=== PATIENT | female | born 1950 | race Caucasian/White ===

== ENCOUNTER 2020-07-31 10:11 | Outpatient (CLI) | payer MEDICARE, SELFPAY ==
--- NOTE | ~2020-07-31 | MM_ITS ---
EXAMINATION: MM screening fercho BI w moon HISTORY: Screening mammogram TECHNIQUE: Craniocaudal and mediolateral oblique 3-D tomosynthesis images were obtained and synthetic 2-D images were generated. CAD analysis was submitted and interpreted. COMPARISON: No prior mammogram is available for comparison at this institution. BREAST PARENCHYMAL COMPOSITION: There are scattered areas of fibroglandular density. FINDINGS: Benign calcifications including arterial calcifications. There are 2 heavily calcified dege nerated fibroadenomas on the right. There is a circumscribed 8 mm opacity in the mid inner left breas t. There is no evidence of suspicious mass, calcification, or architectural distortion to suggest malign turner in either breast. IMPRESSION: 1. No mammographic evidence of malignancy. 2. Recommend routine screening mammography in one year. BI-RADS Category 2: Benign finding(s). Reviewed, dictated and finalized at location A.
--- NOTE | ~2020-07-31 | DEXA_ITS ---
Bone Density Report Name: Nivia Truong Age: 69 Sex: Female Ethnicity: White Date of : 1950 Indication: postmenopausal; Referring Provider: Aurea Quiroz Study: Bone densitometry was performed. Exam Date: July 31, 2020 Accession number: [id number] Bone Density: Region BMD T-score Z-score Classification AP Spine (L1-L4) 0.973 -0.7 1.5 Normal Femoral Neck (Left) 0.616 -2.1 -0.3 Osteopenia Total Hip (Left) 0.795 -1.2 0.3 Osteopenia Total Hip Bilateral Avg 0.787 -1.3 0.3 Osteopenia Femoral Neck (Right) 0.628 -2.0 -0.2 Osteopenia Total Hip (Right) 0.778 -1.3 0.2 Osteopenia World Health Organization criteria for BMD impression classify patients as: Normal (T-score at or above -1.0), Osteopenia (T-score between -1.0 and -2.5), or Osteoporosis (T-score at or below -2.5). 10-year Fracture Risk(1): Major Osteoporotic Fracture 12% Hip Fracture 2.4% Reported Risk Factors: [place] (), Neck BMD=0.616, BMI=28.7 (1) FRAX(R) Version 3.08. Fracture probability calculated for an untreated patient. Fracture probability may be lower if the patient has received treatment. Clinical Information Provided by Patient: Patient maximum height was 66.5 Menopause Age: 61 Drinks caffeinated beverages Onset of menses at age 15 Number of children 5 Impression: The patient has low bone mass, based on the Left Femoral Neck T-score. The patient has an estimated ten-year risk of hip fracture of 2.4% and an estimated ten-year risk of major fracture of 12%, based on the WHO FRAX algorithm. Discussion: BONE DENSITY IS LOW AT ONE OR MORE SKELETAL SITES. This patient's lowest T-score is low at one or more skeletal sites. It meets the World Health Organization's (WHO) criteria for ?low bone mass? (T-score between -1.0 and -2.5). The patient's 10-year risk of fracture as calculated by FRAX is less than the threshold where pharmacological therapy is recommended by the National Osteoporosis Foundation (NOF). However, all treatment decisions require clinical judgment and consideration of individual patient factors, including patient preferences, comorbidities, previous drug use, risk factors not captured in the FRAX model (e.g., frailty, falls, vitamin D deficiency, increased bone turnover, interval significant decline in bone density) and possible under or overestimation of fracture risk by FRAX. The patient should follow a healthful lifestyle (good nutrition with adequate calcium and vitamin D, and appropriate weight-bearing exercise). Follow-Up: Consider repeating this study in 2 to 3 years to reassess this patient's status, or sooner if there is some new clinical indication. Reported by: JANES on 07/31/2020 10:41:00 AM. Reviewed, dictated and finalized at location A. MI
== END 2020-07-31 10:12 | disposition home or self-care (01) ==
LOC: ANHIMG 10:17
PROVIDERS: PCP Family Medicine; Visit Provider Nurse Practitioner Family
DX: Z12.31 Encounter for screening mammogram for malignant neoplasm of breast (principal); Z78.0 Asymptomatic menopausal state; M85.852 Other specified disorders of bone density and structure, left thigh; M85.851 Other specified disorders of bone density and structure, right thigh
CPT/HCPCS: 77063; 77067; 77080

== ENCOUNTER 2021-02-02 14:29 | Emergency (ER) | payer MEDICARE, SELFPAY ==
[2021-02-02 15:27] VITALS: BP 130/75; PULSE 77; RESP 20; TEMP 36.4; O2SAT 98
--- NOTE | 2021-02-02 15:36 | ED.URI ---
HPI - URI/Sore Throat General Chief Complaint: Upper Respiratory Infection Stated Complaint: Cough,Body Aches,Headache,Loss of smell and taste Time Seen by Provider: 02/02/21 15:36 Source: patient, family, RN notes reviewed and old records reviewed Mode of arrival: ambulatory Limitations: no limitations History of Present Illness HPI Narrative: 70-year-old female presents to the [facility] with complaints of cough, body aches, headache and loss of taste and smell. Patient states that she had a positive exposure on Tuesday, January 26. Started with a cough and congestion on Tuesday. States she lost taste of smell yesterday. Denies fever. Describes as severe body aches and pains that started yesterday. Reports that she has felt feverish but has not taken her temperature. MD elicited complaint: cough Related Data Home Medications Medication Instructions Recorded Confirmed cholecalciferol (vitamin D3) 50 50 mcg PO DAILY 08/07/20 02/02/21 mcg (2,000 unit) capsule vitamin B complex 1 tablet PO DAILY 09/18/20 02/02/21 Allergies Allergy/AdvReac Type Severity Reaction Status Date / Time aspirin Allergy Intermediate HEADACHE,RINGING Verified 02/02/21 15:18 IN EARS Penicillins Allergy Intermediate LARGE HIVES Verified 02/02/21 15:18 Review of Systems Review of Systems: All systems reviewed & are unremarkable except as noted in HPI and below Constitutional: Constitutional: Reports as per HPI and Reports chills Eyes: Eyes: Reports no additional eye complaints ENT: Reports system reviewed and no additional complaints, except as documented Cardiovascular: Cardiovascular: Reports no additional cardiovascular complaints, Denies chest pain and Denies radiating jaw, neck or arm pain Respiratory: Respiratory: Reports as per HPI, Reports cough and Denies dyspnea Gastrointestinal: Gastrointestinal: Reports no additional gastrointestinal complaints, Denies abdominal pain, Denies nausea and Denies vomiting Musculoskeletal: Musculoskeletal: Reports as per HPI and Reports myalgias Integumentary/Breasts: Skin/Breast: Reports system reviewed and no additional complaints, except as docu Neurologic: Reports system reviewed and no additional complaints, except as documented Psychiatric: Psychiatric: Reports no additional psychiatric complaints Allergic/Immunologic: Allergic/Immunologic: Reports no additional allergic/immunologic complaints PMFSH Past Medical History Medical History Hyperlipidemia May-Thurner syndrome Stress incontinence, female Surgical History Surgical History Hx of partial thyroidectomy (~1965) Family History Family History Mother Family history of thyroid disease Family history of obesity Family history of osteoarthritis Family history of malignant neoplasm Family history of diabetes mellitus in first degree relative Grandparent Family history of bipolar disorder Family history of attention deficit hyperactivity disorder (ADHD) Other Family history of pancreatic cancer Social History Social History Social History: , lives in own home in [place] with her . Has 5 children who live nearby. 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 Smoking status: Never smoker Second hand tobacco smoke exposure: No Alcohol intake: never Comments At the time of my signature, I reviewed and agree with the nursing past medical, surgical, social, and family history. There is no relevant family history pertinent to the patient complaint. Exam Const: General: no acute distress, alert and ill appearing acutely (mild) Nutritional Appearance: well nourished Orientation/consciousness: patient oriented x3 Limitations: no limitations HENMT: Head: normal
[2021-02-04 03:58] LABS: SARS-CoV-2 RNA PCR Positive
== END 2021-02-02 16:20 | disposition home or self-care (01) ==
PROVIDERS: Emergency Provider Nurse Practitioner
DX: U07.1 COVID-19 (principal); J12.82 Pneumonia due to coronavirus disease 2019; E78.5 Hyperlipidemia, unspecified
CPT/HCPCS: 87804; 99213; C9803; G0463; U0003; U0005

== ENCOUNTER → 2021-03-26 08:48 | Outpatient (CLI) | payer OTHER, SELFPAY ==
--- NOTE | ~2021-03-26 | XR_ITS ---
XR chest 2V DATE: 03/26/2021 09:17 INDICATION: Cough TECHNIQUE: 2 views COMPARISON: None FINDINGS: Normal heart size. No hilar or mediastinal enlargement. No pulmonary infiltrate or consolid ation, pleural effusion or pulmonary vascular congestion or pneumothorax is detected. Diffuse osteope ike. IMPRESSION: No active cardiopulmonary disease Reviewed, dictated and finalized at location B. O CONTROL CRANE OPERATOR
--- NOTE | ~2021-03-26 | XR_ITS ---
EXAMINATION: XR wrist LT w scaphoid DATE: 03/26/2021 09:17 INDICATION: Snuffbox tenderness post injury 2-3 weeks prior. TECHNIQUE: Posteroanterior, ulnar deviation, oblique, and lateral views of the left wrist were obtain ed. COMPARISON: none FINDINGS: Bone alignment is normal. Subtle dense line extending across the scaphoid waist which could represent a double density sign related to a nondisplaced fracture. No other lesions suspicious for fracture i dentified. Mild osteoarthritis at the distal radioulnar, triscaphe and first carpal metacarpal joints . IMPRESSION: 1. Possible nondisplaced fracture at the scaphoid waist although suspicion is relatively low. Could c onsider further evaluation with either MRI or CT. Reviewed, dictated and finalized at location A. TOLOGIST IMPRESSION: 1. Possible nondisplaced fracture at the scaphoid waist although suspicion is r elatively low. Could consider further evaluation with either MRI or CT.
== END ==
PROVIDERS: PCP Family Medicine; Visit Provider Family Medicine
DX: S63.502A Unspecified sprain of left wrist, initial encounter (principal); R05.9 Cough, unspecified; X58.XXXA Exposure to other specified factors, initial encounter
CPT/HCPCS: 71046; 73110

== ENCOUNTER → 2021-04-10 09:13 | Outpatient (CLI) | payer OTHER, SELFPAY ==
--- NOTE | ~2021-04-10 | MR_ITS ---
EXAMINATION: MR wrist LT wo con DATE: 04/10/2021 10:14 INDICATION: Left wrist pain. TECHNIQUE: Magnetic resonance imaging (MRI) of the wrist was performed without intravenous contrast. Sequences performed include coronal T1-weighted FSE, coronal PD-weighted FS FSE, axial PD-weighted FS FSE, axial PD-weighted FSE, sagittal PD-weighted FSE, and sagittal PD-weighted FS FSE. COMPARISON: Left wrist radiographs 03/26/2021 FINDINGS: Intrinsic ligaments: There are tears of the proximal (membranous) components of the scapholunate ligament and lunotriquetr al ligament. Triangular fibrocartilage complex (TFCC): Triangular fibrocartilage is normal. Extensor wrist: There is tendinopathy and partial tears involving the extensor pollicis brevis, abductor pollicis lakesha fatuma, and extensor carpi ulnaris. Flexor wrist: The flexor tendons are normal. Median nerve is normal. Guyon's canal: The ulnar nerve is normal. Bones/other: There is a nondisplaced fracture of distal radius with involvement of the distal articular surface at the lunate fossa. The ulnar styloid is intact. There is no scaphoid fracture. There is mild osteoart hritis of triscaphe joint and first carpometacarpal joint. IMPRESSION: 1. Nondisplaced fracture of distal radius. 2. Tendinopathy and partial tears involving the extensor pollicis brevis, abductor pollicis longus, a nd extensor carpi ulnaris. 3. 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 Reviewed, dictated and finalized at location A. AZZO HELPER IMPRESSION: 1. Nondisplaced fracture of distal radius. 2. Tendinopathy and partial tears involving the extensor pollicis brevis, abduc tor pollicis longus, and extensor carpi ulnaris. 3. 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
== END ==
PROVIDERS: PCP Family Medicine; Visit Provider Orthopaedic Surgery
DX: M19.032 Primary osteoarthritis, left wrist (principal)
CPT/HCPCS: 73221

== ENCOUNTER 2021-12-02 08:15 | Outpatient (CLI) | payer OTHER, SELFPAY ==
[2021-12-03 11:20] LABS: Kit Draw Collected
== END 2021-12-02 08:16 | disposition home or self-care (01) ==
LOC: ANHGOSHLAB 08:19
PROVIDERS: PCP Family Medicine; Visit Provider Family Medicine
DX: E78.5 Hyperlipidemia, unspecified (principal); Z53.8 Procedure and treatment not carried out for other reasons
CPT/HCPCS: 99199; 36415

== ENCOUNTER 2022-05-24 12:38 | Outpatient (CLI) | payer OTHER, SELFPAY ==
--- NOTE | ~2022-05-24 | US_ITS ---
EXAMINATION:US venous doppler LE LT INDICATION:Left leg pain TECHNIQUE: Multiple grayscale, color flow and Doppler images of the left lower extremity deep venous systems were obtained and reviewed. COMPARISON:No prior studies for comparison. FINDINGS: The common femoral, superficial femoral and popliteal veins demonstrate normal respiratory variation, augmentation and compressibility. Color flow is also seen within the posterior tibial, pe roneal, greater saphenous and profunda veins. IMPRESSION: 1: No lower extremity deep venous thrombosis. Reviewed, dictated and finalized at location A.
== END 2022-05-24 12:39 | disposition home or self-care (01) ==
PROVIDERS: PCP Family Medicine; Visit Provider Physician Assistant
DX: M79.89 Other specified soft tissue disorders (principal)
CPT/HCPCS: 93971

== ENCOUNTER 2022-06-25 10:01 | Outpatient (CLI) | payer OTHER, SELFPAY ==
--- NOTE | ~2022-06-25 | MM_ITS ---
EXAMINATION: MM screening fercho BI w moon HISTORY: Screening mammogram TECHNIQUE: Craniocaudal and mediolateral oblique 3-D tomosynthesis images were obtained and synthetic 2-D images were generated. CAD analysis was submitted and interpreted. COMPARISON: 08/01/2019 BREAST PARENCHYMAL COMPOSITION: There are scattered areas of fibroglandular density. FINDINGS: No suspicious mass, calcification, or architectural distortion are identified in either edy ast to suggest malignancy. There has been no suspicious interval change. IMPRESSION: 1. No mammographic evidence of malignancy. 2. Recommend routine screening mammography in one year. BI-RADS Category 1: Negative Reviewed, dictated and finalized at location A.
== END 2022-06-25 10:02 | disposition home or self-care (01) ==
LOC: ANHIMG 10:03
PROVIDERS: PCP Family Medicine; Visit Provider Physician Assistant
DX: Z12.31 Encounter for screening mammogram for malignant neoplasm of breast (principal)
CPT/HCPCS: 77063; 77067

== ENCOUNTER 2022-12-27 12:44 | Outpatient (CLI) | payer OTHER, SELFPAY ==
[2022-12-27 18:22] LABS: Alanine Aminotransferase 20 U/L (6-35); Albumin Level 3.9 g/dL (3.5-5.1); Alkaline Phosphatase 64 U/L (38-126); Anion Gap 6 mmol/L (8-16); Aspartate Amino Transferase 27 U/L (14-36); Bilirubin,Total 0.5 mg/dL (0.2-1.3); Blood Urea Nitrogen 13 mg/dL (7-17); Calcium 8.8 mg/dL (8.4-10.2); Carbon Dioxide 30 mmol/L (22-30); Chloride 102 mmol/L (98-107); Cholesterol 299 mg/dL (0-200); Estimated Glomerular Filt Rate > 60; Glucose 89 mg/dL (65-110); HDL Direct 64 mg/dL; Potassium 4.6 mmol/L (3.4-5.0); Sodium 138 mmol/L (137-145); Triglycerides 114 mg/dL (<150)
[2022-12-27 18:34] LABS: LDL Cholesterol Direct 169 mg/dL
== END 2022-12-27 12:45 | disposition home or self-care (01) ==
PROVIDERS: PCP Family Medicine; Visit Provider Family Medicine
DX: E78.5 Hyperlipidemia, unspecified (principal); I87.1 Compression of vein
CPT/HCPCS: 36415; 80053; 80061

== ENCOUNTER 2023-06-04 08:24 | Outpatient (CLI) | payer OTHER, SELFPAY ==
[2023-06-04 11:44] LABS: Toxigenic C. Diff NEGATIVE (NEGATIVE)
== END 2023-06-04 08:25 | disposition home or self-care (01) ==
LOC: ANHLAB 08:26
PROVIDERS: PCP Family Medicine; Visit Provider Nurse Practitioner Family
DX: R19.7 Diarrhea, unspecified (principal)
CPT/HCPCS: 87045; 87427; 87449; 87493

== ENCOUNTER 2023-06-15 08:48 | Day surgery (SDC) | payer OTHER, SELFPAY ==
[2023-06-07 08:56] VITALS: BMI 28.7
--- NOTE | 2023-06-15 10:04 | SUR.PREOP ---
WHILE TAKING PT VITAL SIGNS. PULSE OX SHOWS IRREGULAR HEART BEAT. RADIAL PULSE TAKEN, OCCASIONAL IRREGULAR BEAT. PT PLACED ON TELEMETRY. NSR WITH OCCASIONAL PVC. DR ROSENTHAL NOTIFIED.
[2023-06-15 10:08] VITALS: BMI 28.4
[2023-06-15 10:09] VITALS: BP 116/65; PULSE 74; RESP 18; TEMP 36.5; O2SAT 99
--- NOTE | 2023-06-15 10:15 | WPDANESEPPF ---
Anes - Initial Pre Proc Eval Procedure: Operation Date: 06/15/23 11:00 Proposed Procedures p Esophagogastroduodenoscopy - Meek Michele MD Date/Time: 06/15/23 10:15 Surgeon: Meek Michele MD Pre Op Diagnosis: GERD without esophagitis Patient Data Age: 72 Gender: F Height: 1.68 m Weight: 80 kg Last Vital Signs Temp 36.5 C 06/15/23 10:09 Pulse 74 06/15/23 10:09 Resp 18 06/15/23 10:09 BP 116/65 06/15/23 10:09 Pulse Ox 99 06/15/23 10:09 O2 Del Method Room Air 06/15/23 10:09 Allergies Allergy/AdvReac Type Severity Reaction Status Date / Time Iodinated Contrast Media Allergy Severe childhood: Verified 06/15/23 09:44 difficulty breathing aspirin Allergy Intermediate headache, Verified 06/15/23 09:44 nausea, can't breathe Penicillins Allergy Intermediate LARGE HIVES Verified 06/15/23 09:44 venom-honey bee Allergy Unknown Hives Verified 06/15/23 09:44 venom-wasp Allergy Unknown Hives Verified 06/15/23 09:44 phenazopyridine [From Azo] Allergy LOCAL RASH Verified 06/15/23 09:44 GAULDED Home Medications Medication Instructions Recorded Confirmed Type cholecalciferol (vitamin D3) 50 50 mcg PO DAILY 08/07/20 06/15/23 History mcg (2,000 unit) capsule vitamin B complex (B 1 tablet PO DAILY 09/18/20 06/15/23 History Complex-Vitamin B12 tablet) melatonin 3 mg capsule 3 mg PO QHS 07/09/21 06/15/23 History epinephrine 0.3 mg/0.3 mL 0.3 mg (0.3 mL) IM ONCE #2 ea 10/05/21 06/15/23 Rx injection, auto-injector (EpiPen 2-Felipe) potassium 99 mg tablet 99 mg PO DAILY 12/01/21 06/15/23 History vitamins A,C,V-dtva-tfbuac 4,296 1 cap PO BID 12/01/21 06/15/23 History mcg-226 mg-90 mg capsule (Healthy Eyes SuperVision) thumb spica splint #1 ea 06/08/22 12/28/22 Rx lactobacillus combination no.9 4 4,000 mmu cells PO DAILY 07/23/22 06/15/23 History billion cell capsule (Adult 50 Plus Probiotic) ezetimibe 10 mg tablet 10 mg PO DAILY #90 tabs 05/13/23 06/15/23 Rx ciprofloxacin HCl 500 mg tablet 500 mg PO Q12H #20 tabs 06/03/23 06/15/23 Rx Patient hx anesthesia problems: none Family hx anesthesia problems: none Results Review: All pre-operative results and documents have been reviewed as part of the pre-operative evaluation. [facility] Past Medical History Medical History Alternating constipation and diarrhea Aspirin-induced anaphylactoid reaction 2x tolerates aleve Asthma Bee sting-induced anaphylaxis Diminished pulses in lower extremity Hyperlipidemia May-Thurner syndrome Nondisplaced fracture of distal end of left radius Stress incontinence, female Varicose veins of left lower extremity with other complications Surgical History Surgical History History of appendectomy History of tonsillectomy and adenoidectomy History of tubal ligation Hx of partial thyroidectomy (~1965) S/P partial thyroidectomy Family History Family History Mother Family history of thyroid disease Family history of obesity Family history of osteoarthritis Family history of malignant neoplasm Family history of diabetes mellitus in first degree relative Heart disease Grandparent Family history of bipolar disorder Family history of attention deficit hyperactivity disorder (ADHD) Father Asthma Other Family history of pancreatic cancer Social History Social History Social History: , lives in own home in [place] with her . Has 5 children who live nearby. 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 Smoking status: Never smoker Second hand tobacco smoke exposure: No Alcohol intake: never Substance use: never Substance use type: does not use Lack of Transportation: No [place]
[2023-06-15] MEDS: LACTATED RINGERS 1,000 ML 150 ML IV CONT (10:26)
--- NOTE | 2023-06-15 10:57 | PM.HPGS ---
History of Present Illness History of Present Illness Consent: Risks, benefits, and alternatives have been discussed and questions answered. Patient agrees to proceed with procedure. Chief complaint: GERD without esophagitis Narrative: Nivia Truong is a 72 year old female referred for EGD. Patient has a history of chronic GE reflux disease. For many years has had heartburn regurgitation. Previously she took PPI most recently treated with Rolaids and diet modification. She is referred today for follow-up EGD for surveillance she has never previously had an EGD to evaluate this. Patient currently denies any bleeding. Her weight is stable. She denies any weight loss. Family history noncontributory. Review of Systems Review of Systems: All systems reviewed & are unremarkable except as noted in HPI and below PMFSH Past Medical History Medical History Alternating constipation and diarrhea Aspirin-induced anaphylactoid reaction 2x tolerates aleve Asthma Bee sting-induced anaphylaxis Diminished pulses in lower extremity Hyperlipidemia May-Thurner syndrome Nondisplaced fracture of distal end of left radius Stress incontinence, female Varicose veins of left lower extremity with other complications Surgical History Surgical History History of appendectomy History of tonsillectomy and adenoidectomy History of tubal ligation Hx of partial thyroidectomy (~1965) S/P partial thyroidectomy Family History Family History Mother Family history of thyroid disease Family history of obesity Family history of osteoarthritis Family history of malignant neoplasm Family history of diabetes mellitus in first degree relative Heart disease Grandparent Family history of bipolar disorder Family history of attention deficit hyperactivity disorder (ADHD) Father Asthma Other Family history of pancreatic cancer Social History Social History Social History: , lives in own home in [place] with her . Has 5 children who live nearby. 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 Smoking status: Never smoker Second hand tobacco smoke exposure: No Alcohol intake: never Substance use: never Substance use type: does not use Lack of Transportation: No Lack of Food: Never True Current Housing: I Have Housing Concerned About Future Housing: No Difficulty Paying Gas/Electric Bills: No Difficulty Paying for Meds: No Currently Unemployed: No Education: High School Diploma/GED Difficulty w/ Childcare or Family Care: No Living arrangements: with family Gender identity (if verbalized by the patient): Female Meds Home Medications and Allergies Home Medications Medication Instructions Recorded Confirmed Type cholecalciferol (vitamin D3) 50 50 mcg PO DAILY 08/07/20 06/15/23 History mcg (2,000 unit) capsule vitamin B complex (B 1 tablet PO DAILY 09/18/20 06/15/23 History Complex-Vitamin B12 tablet) melatonin 3 mg capsule 3 mg PO QHS 07/09/21 06/15/23 History epinephrine 0.3 mg/0.3 mL 0.3 mg (0.3 mL) IM ONCE #2 ea 10/05/21 06/15/23 Rx injection, auto-injector (EpiPen 2-Felipe) potassium 99 mg tablet 99 mg PO DAILY 12/01/21 06/15/23 History vitamins A,C,M-qciq-vadzty 4,296 1 cap PO BID 12/01/21 06/15/23 History mcg-226 mg-90 mg capsule (Healthy Eyes SuperVision) thumb spica splint #1 ea 06/08/22 12/28/22 Rx lactobacillus combination no.9 4 4,000 mmu cells PO DAILY 07/23/22 06/15/23 History billion cell capsule (Adult 50 Plus Probiotic) ezetimibe 10 mg tablet 10 mg PO DAILY #90 tabs 05/13/23 06/15/23 Rx ciprofloxacin HCl 500 mg tablet 500 mg PO Q12H #20 tabs 06/03/23 06/15/23 Rx Allergies Allergy/AdvReac Type S
[2023-06-15 11:15] VITALS: BP 91/55; PULSE 65; RESP 16; O2SAT 99
[2023-06-15 11:25] VITALS: BP 100/53; PULSE 58; RESP 16; O2SAT 99
[2023-06-15 11:35] VITALS: BP 112/71; PULSE 55; RESP 16; O2SAT 100
--- NOTE | 2023-06-15 11:35 | WPDANESPN ---
Anes - Prog Note Post-Op Date/Time: 06/15/23 11:35 Cardiovascular status: normal Respiratory status: normal Airway patency: baseline Mental status: baseline Post-Op hydration status: normal Vital Signs: Last Vital Signs Temp 36.5 C 06/15/23 10:09 Pulse 58 L 06/15/23 11:25 Resp 16 06/15/23 11:25 BP 100/53 L 06/15/23 11:25 Pulse Ox 99 06/15/23 11:25 O2 Del Method Room Air 06/15/23 11:25 Pain Score (VAS): 0/10 I/O: Intake & Output 06/14/23 06/15/23 06/15/23 23:59 07:59 15:59 Intake Total 300 Balance 300 Patient Feedback: Patient satisfied with anesthetic care.
== END 2023-06-15 12:07 | disposition home or self-care (01) ==
PROVIDERS: PCP Family Medicine; Referring Provider Family Medicine; Visit Provider Internal Medicine Gastroenterology
PROC: 0DJ08ZZ Inspection of Upper Intestinal Tract, Via Natural or Artificial Opening Endoscopic (ICD-10-PCS; CPT 43235; principal; 2023-06-15 11:00)
DX: K21.9 Gastro-esophageal reflux disease without esophagitis (principal); K44.9 Diaphragmatic hernia without obstruction or gangrene
CPT/HCPCS: 43235

== ENCOUNTER 2023-09-30 12:51 | Outpatient (CLI) | payer OTHER, SELFPAY ==
--- NOTE | ~2023-09-30 | MM_ITS ---
EXAMINATION: MM diagnostic fercho BI w moon HISTORY: Breast pain TECHNIQUE: Additional 3-D tomosynthesis images of the breasts were performed and synthetic 2-D images were generated. CAD analysis was submitted and interpreted. COMPARISON: Comparison to multiple prior studies sequentially, with oldest reviewed study dated 07/31. BREAST PARENCHYMAL COMPOSITION: Not dense: There are scattered areas of fibroglandular density. FINDINGS: The breasts are stable. No new masses, calcifications or architectural distortion in either breast to suggest malignancy. IMPRESSION: 1. No mammographic evidence for malignancy in either breast. 2. Routine yearly screening mammogram and regular clinical breast examination are recommended. BI-RADS Category 1: Negative Reviewed, dictated and finalized at location B. IMPRESSION: 1. No mammographic evidence for malignancy in either breast. 2. Routine yearly screening mammogram and regular clinical breast examination a re recommended. BI-RADS Category 1: Negative
== END 2023-09-30 12:52 | disposition home or self-care (01) ==
PROVIDERS: PCP Family Medicine; Visit Provider Student in an Organized Health Care Education/Training Program
DX: N64.4 Mastodynia (principal)
CPT/HCPCS: 77062; 77066; G0279

== ENCOUNTER 2024-06-08 11:41 | Outpatient (CLI) | payer OTHER, SELFPAY ==
[2024-06-08 18:10] LABS: Basophils Percent Auto 0.7 % (0.2-1.2); Eosinophils Absolute Auto 0.1 K/mm3 (0-0.3); Hematocrit 45.5 % (37.0-47.0); Hemoglobin 14.2 g/dL (12.0-15.0); Immature Granulocyte Absolute 0.02 K/mm3 (0.00-0.031); Immature Granulocyte Percent A 0.4 % (0-0.5); Lymphocytes Absolute Auto 1.74 K/mm3 (0.9-3.2); Lymphocytes Percent Auto 31.4 % (18.3-44.2); Mean Corpuscular HGB Conc 31.2 g/dl (32-36); Mean Corpuscular Hemoglobin 28.9 pg (26-34); Mean Corpuscular Volume 92.7 fl (80-100); Mean Platelet Volume 12.1 fl (7.4-10.4); Monocytes Absolute Auto 0.5 K/mm3 (0.1-0.6); Monocytes Percent Auto 9.6 % (2.6-8.5); Neutrophils Absolute Auto 3.1 K/mm3 (1.3-6.7); Neutrophils Percent Auto 55.9 % (45.5-73.1); Platelet Count Result 222 k/mm3 (150-375); Red Blood Count 4.91 M/mm3 (4.2-5.4); Red Cell Distribution Width 13.4 % (11.5-14.5); White Blood Count 5.5 K/mm3 (4.5-10.0)
[2024-06-08 18:31] LABS: Vitamin D 25 Hydroxy 35.4 ng/mL
[2024-06-08 18:48] LABS: Alanine Aminotransferase 17 U/L (6-35); Albumin Level 4.1 g/dL (3.5-5.1); Alkaline Phosphatase 63 U/L (38-126); Anion Gap 4 mmol/L (4-12); Aspartate Amino Transferase 27 U/L (14-36); Bilirubin,Total 0.6 mg/dL (0.2-1.3); Blood Urea Nitrogen 15 mg/dL (7-17); Calcium 8.9 mg/dL (8.4-10.2); Carbon Dioxide 32 mmol/L (22-30); Chloride 101 mmol/L (98-107); Cholesterol 264 mg/dL (0-200); Estimated Glomerular Filt Rate 56; Glucose 79 mg/dL (65-110); HDL Direct 61 mg/dL; Potassium 4.6 mmol/L (3.4-5.0); Sodium 137 mmol/L (137-145); Triglycerides 124 mg/dL (<150)
[2024-06-08 18:56] LABS: LDL Cholesterol Direct 146 mg/dL
--- OUTSIDE RECORDS SUMMARY | 2024-06-09 12:55 | XMS_ITS | Encounter Summary ---
Author Organization [facility] Address 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
--- OUTSIDE RECORDS SUMMARY | 2024-06-09 12:55 | XMS_ITS | Clinical Summary ---
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
--- OUTSIDE RECORDS SUMMARY | 2024-06-09 12:55 | XMS_ITS | Clinical Summary ---
Author Organization [facility] (formerly [facility])[3] at [facility] Address [address] [place] [address] Care Team Providers Care Military Personnel Specialist Name Role Phone Brianna Hall MD Primary Care Provider + Alanis Jack COCOA BUTTER FILTER OPERATOR Unavailable [phone] Allergies Active Allergy Reactions Criticality Noted Date Comments Adhesive Other (See comments) Low 01/16/2018 Aspirin Nausea And Vomiting,Nausea only,Rash High 01/16/2018 And headache And headache Blue Dye Urticaria,Hives Medium 01/16/2018 Green Dye Hives,Urticaria Medium 01/16/2018 Iodinated Contrast Media Hives Medium 08/26/2021 Penicillins Hives,Rash,Urticaria High 01/16/2018 And breathing problems And breathing problems Medications atorvastatin (LIPITOR) 40 mg tablet Take 1 tablet (40 mg total) by mouth daily 06/09/2021 Active ezetimibe (ZETIA) 10 mg tablet Take 1 tablet (10 mg total) by mouth daily Active sertraline (ZOLOFT) 25 mg tablet Take 1 tablet (25 mg total) by mouth daily 30 tablet 11 12/19/2023 5 Active Active Problems Problem Noted Date Diagnosed Date Anxiety disorder 12/19/2023 Assessment & Plan (12/19/2023 2:04 PM ELECTRICAL APPLIANCE MECHANIC): Dx: Anxiety and possible sleep disorder. Possible RLS. Check ferritin, iron panel Start sertraline 25mg, take in the AM. Referral to Sleep Neurology to evaluate and treat for sleep apnea, RLS Leg cramps 12/19/2023 Leg muscle spasm 12/19/2023 Lymphedema 09/23/2021 Assessment & Plan (09/23/2021 9:24 AM CDT): Left lower extremity edema despite compression therapy, family history of lymphedema. I have written a referral for lymphedema pump. Can follow-up as needed. Compression of vein 08/27/2021 Assessment & Plan (08/27/2021 9:20 AM CDT): Per patient she was diagnosed with May-Thurner syndrome of the left lower extremity. Left lower extremity reflux pulpwood buyer study ordered. I will obtain her imaging from [facility] she will follow-up in 1-2 weeks. 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 Surgical History Surgery Date Site/Laterality Comments APPENDECTOMY TONSILLECTOMY TUBAL LIGATION THYROIDECTOMY Medical History Medical History Date Comments Asthma HLD (hyperlipidemia) May-Thurner syndrome Radius fracture left GERD (gastroesophageal reflux disease) Hiatal hernia Family History Medical History Relation Name Comments Asthma Father Cancer Mother Heart disease Mother Osteoarthritis Mother Thyroid disease Mother Relation Name Status Comments Father Mother Social History Tobacco Use Types Packs/Day Years Used Date Smoking Tobacco: Never Tobacco Cessation:Counseling Given: Not Answered Comments Unknown Sex and Gender Information Value Date Recorded Sex Assigned at Not on file Legal Sex Female 12:44 PM CDT Gender Identity Not on file Sexual Orientation Not on file Obstetrics History Last Filed Vital Signs Vital Sign Reading Time Taken Comments Blood Pressure 138/80 12/19/2023 12:53 PM ELECTRICAL APPLIANCE MECHANIC Pulse 102 12/19/2023 12:53 PM ELECTRICAL APPLIANCE MECHANIC Temperature - - Respiratory Rate - - Oxygen Saturation - - Inhaled Oxygen Concentration - - Weight 79.4 kg (175 lb) 12/19/2023 12:53 PM ELECTRICAL APPLIANCE MECHANIC Height 165.1 cm (5' 5 ) 12/19/2023 12:53 PM ELECTRICAL APPLIANCE MECHANIC Body Mass Index 29.12 12/19/2023 12:53 PM ELECTRICAL APPLIANCE MECHANIC Plan of Treatment Health Maintenance Due Date Last Done Comments Breast Cancer Screening-Mammogram 1950 Colon Cancer Screening-Colonoscopy 1949 Depression Screening 1950 Fall Risk Assessment 1950 Hepatitis C Screening 1950 Osteoporosis Screening-Bone Density Scan 1949 DTaP/Tdap/Td Vaccine (1 - Tdap) 1960 Hepatitis B Screening 12/13/1967 Pneumococcal vaccine 65+ (1 of 1 - PCV) 12/13/1999 Zoster Vaccine (1 of 2) 12/13/1999 Well Visit 65+ 2014 Influenza Vaccine (Season Ended) 2024 Insurance [facility] [address] [facility] [facility] Care Teams Military Personnel Specialist Relationship Specialty Start Date End Date Brianna Hall MD [facility] [place] [address] PCP - General Family Medicine 11/09/23 Alanis Jack, COCOA BUTTER FILTER OPERATOR [address] [place] [address] Family Medicine 12/15/23
--- OUTSIDE RECORDS SUMMARY | 2024-06-09 12:55 | XMS_ITS | Clinical Summary ---
Author Organization [facility] Address [address] [place] [address] Care Team Providers Care Sas Clinical Programmer Name Role Phone Unavailable Primary Care Provider Unavailabl e Source Comments [facility],non-owned Affiliates and Associated Physician Practices is amultiple site organization consisting of ambulatory clinics and hospital sitesin [place], [place], [place] and [place]. This disclosure is being madepursuant to the Care Everywhere program and may not contain all information available regarding this patient. Last updated 17.[facility] Allergies Active Allergy Reactions Criticality Noted Date Comments Adhesive Sensitivity Other 01/16/2018 Aspirin Nausea and/or Vomiting,Rash High 01/16/2018 And headache Blue Dyes Urticaria Medium 01/16/2018 Green Dye Urticaria Medium 01/16/2018 Penicillins Urticaria,Rash High 01/16/2018 And breathing problems Medications * Be aware that medications may not be up to date on this document. Alwaysverify current medications with the patient. No known medications Active Problems No known active problems Social History Tobacco Use Types Packs/Day Years Used Date Smoking Tobacco: Never Assessed Comments Unknown Sex and Gender Information Value Date Recorded Sex Assigned at Not on file Legal Sex Female 2:07 PM MACHINERY CLEANER Gender Identity Not on file Sexual Orientation Not on file Last Filed Vital Signs Vital Sign Reading Time Taken Comments Blood Pressure 120/70 12/26/2018 2:40 PM MACHINERY CLEANER Pulse 67 12/26/2018 2:40 PM MACHINERY CLEANER Temperature 37.2 C (98.9 F) 12/26/2018 2:40 PM MACHINERY CLEANER Respiratory Rate 16 12/26/2018 2:40 PM MACHINERY CLEANER Oxygen Saturation 98% 12/26/2018 2:40 PM MACHINERY CLEANER Inhaled Oxygen Concentration - - Weight 79.4 kg (175 lb) 12/26/2018 2:40 PM MACHINERY CLEANER Height 167.6 cm (5' 6 ) 12/26/2018 2:40 PM MACHINERY CLEANER Body Mass Index 28.25 12/26/2018 2:40 PM MACHINERY CLEANER Plan of Treatment Health Maintenance Due Date Last Done Comments BONE DENSITY TESTING 1950 COLOGUARD (AGES 45-75) - COL ON CA SCREENING 1949 COLON MONITORING 1949 COLONOSCOPY - COLON CA SCREENING 1949 CT COLONOGRAPHY - COLON CA SCREENING 1950 Colorectal Cancer Screening 1949 FIT - COLON CA SCREENING 1949 FLEX SIG - COLON CA SCREENING 1949 LIPID TESTING 1949 MAMMOGRAM 1949 HEPATITIS C SCREENING 12/08/1967 DTAP/TDAP/TD VACCINES (1 - Tdap) 1968 PNEUMOCOCCAL VACCINE 50+ (1 of 1 - PCV) 12/13/1999 ZOSTER VACCINE (1 of 2) 12/13/1999 SCREENING FOR DIABETES 12/26/2018 COVID-19 VACCINE (1 - 2023-2 5 season) 2023 DEPRESSION SCREENING 02/08/2024 INFLUENZA VACCINE (Season Ended) 2024 Respiratory Syncytial Virus (RSV) Vaccine Pt: or over 60 yrs (1 - 1-dose 75+ series) 2024 HEPATITIS B VACCINE Aged Out No longe r eligible based on patient's age to complete this topic HIB VACCINE Aged Out No longer eligi ble based on patient's age to complete this topic HPV VACCINE Aged Out No longer eligi ble based on patient's age to complete this topic MENINGOCOCCAL (Group B) VACC INE SHARED DECISION-MAKING Aged Out No longer eligibl e based on patient's age to complete this topic MENINGOCOCCAL GROUPS A/C/Y/W VACCINE Aged Out No longer eligible b ased on patient's age to complete this topic Insurance MEDICARE
--- OUTSIDE RECORDS SUMMARY | 2024-06-09 12:55 | XMS_ITS | Referral Summary ---
Author Organization [facility] at [facility] Address [address] [place] [address] Care Team Providers Care Geospatial Technician Name Role Phone Brianna Hall MD Primary Care Provider + Alanis Jakc RESOLUTION ANALYST Unavailable [phone] Allergies Active Allergy Reactions Criticality Noted Date [...] 12/19/2023 Assessment & Plan (12/19/2023 2:04 PM MANAGER MENTAL HEALTH): Dx: Anxiety and possible sleep disorder. Possible [...] left lower extremity. Left lower extremity reflux ornamental plasterer helper study ordered. I will obtain her imaging from [facility] she will follow-up in 1-2 weeks. 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 Social History Tobacco Use Types Packs/Day Years [...] Comments Blood Pressure 138/80 12/19/2023 12:53 PM MANAGER MENTAL HEALTH Pulse 102 12/19/2023 12:53 PM MANAGER MENTAL HEALTH Temperature - - Respiratory Rate - - Oxygen Saturation - - Inhaled Oxygen Concentration - - Weight 79.4 kg (175 lb) 12/19/2023 12:53 PM MANAGER MENTAL HEALTH Height 165.1 cm (5' 5 ) 12/19/2023 12:53 PM MANAGER MENTAL HEALTH Body Mass Index 29.12 12/19/2023 12:53 PM MANAGER MENTAL HEALTH Plan of Treatment Not on file Insurance [facility] [facility] Care Teams Geospatial Technician Relationship Specialty Start Date End Date Brianna Hall MD [address] [place] [address] [address] [place] [address] PCP - General Family Medicine 11/09/23 Alanis Jack, NORMA [address] [place] [address] Family Medicine 12/15/23
--- OUTSIDE RECORDS SUMMARY | 2024-06-09 12:55 | XMS_ITS | Encounter Summary ---
Author Organization [facility] Address [address] [place] [address] Care Team Providers Care Quirk Sander Name Role Phone Unavailable Primary Care Provider Unavailabl e Encounter Details Date Type Department Care Team (Late st Contact Info) Description 01/08/1998 Outpatient Historical [facility] Internal Medicine [address] [address] Ade Goldstein Social History Tobacco Use Types Packs/Day Years Used Date Smoking Tobacco: Never Assessed Sex and Gender Information Value Date Recorded Sex Assigned at Not on file Legal Sex Male 3:03 AM HOSTED SERVICES ANALYST Gender Identity Not on file Sexual Orientation Not on file documented as of this encounter Plan of Treatment Not on file documented as of this encounter Visit Diagnoses Not on filedocumented in this encounter
--- OUTSIDE RECORDS SUMMARY | 2024-06-09 12:55 | XMS_ITS | Clinical Summary ---
Author Organization [facility] Address [address] [place] [address] Care Team Providers Care Car Refinisher Name Role Phone Brianna Hall MD Primary Care Provider [phone] Allergies Active Allergy Reactions Criticality Noted Date Comments Tape Contact Dermatitis 01/16/2018 Aspirin Nausea Only 01/16/2018 And headache Blue Dyes (Parenteral) Hives 01/16/2018 Green Dye Hives 01/16/2018 Iodinated Contrast Media Hives Medium 08/26/2021 Penicillins Hives 01/16/2018 And breathing problems Medications KRILL OIL OR Take 1 tablet by mouth daily. Active ezetimibe (ZETIA) 10 MG tablet Take 1 tablet (10 mg total) by mouth daily. 05/13/2023 Active Active Problems Problem Noted Date Diagnosed Date Varicose veins of bilateral lower extremities with other complications 11/09/2023 Lymphedema 09/23/2021 Overview (11/09/2023): Last Assessment & Plan: Left lower extremity edema despite compression therapy, family history of lymphedema. I have written a referral for lymphedema pump. Can follow-up as needed. Compression of vein 08/27/2021 Overview (11/09/2023): Last Assessment & Plan: Per patient she was diagnosed with May-Thurner syndrome of the left lower extremity. Left lower extremity reflux performance architect study ordered. I will obtain her imaging from [facility] she will follow-up in 1-2 weeks. Leg swelling 08/27/2021 Overview (11/09/2023): Last Assessment & Plan: Continue compression therapy Family History Medical History Relation Comments Diabetes Mother type 2 Heart Disease Mother mi Diabetes Son Epilepsy Son Relation Status Comments Mother Son Social History Tobacco Use Types Packs/Day Years Used Date Smoking Tobacco: Never Smokeless Tobacco: Never Alcohol Use Standard Drinks/Week Comments No 0 (1 standard drink = 0.6 oz pur e alcohol) AUDIT-C Answer Date Recorded Frequency of Alcohol Consumption Never 01/16/2018 Average Number of Drinks Not on file 018 Frequency of Binge Drinking Not on file 01/07 Comments No Sex and Gender Information Value Date Recorded Sex Assigned at Not on file Legal Sex Female 1:08 PM ASSOCIATE JUSTICE Gender Identity Not on file Sexual Orientation Not on file Last Filed Vital Signs Vital Sign Reading Time Taken Comments Blood Pressure 130/78 11/09/2023 9:31 AM CDT Pulse 62 11/09/2023 9:31 AM CDT Temperature 36.4 C (97.5 F) 01/18/2018 12:10 PM ASSOCIATE JUSTICE Respiratory Rate 18 01/18/2018 12:10 PM ASSOCIATE JUSTICE Oxygen Saturation 94% 01/18/2018 12:10 PM ASSOCIATE JUSTICE Inhaled Oxygen Concentration - - Weight 82.1 kg (181 lb) 11/09/2023 9:31 AM CDT Height 168.9 cm (5' 6.5 ) 11/09/2023 9:31 AM CDT Body Mass Index 28.78 11/09/2023 9:31 AM CDT Plan of Treatment Upcoming Encounters Date Type Department Care Team (Late st Contact Info) Description 06/20/2024 11:45 AM CDT [facility] [address] [place] [address] Jose Oneill MD [address] [address] Health Maintenance Due Date Last Done Comments Colorectal Cancer Screening Colonoscopy (10 Years) 1949 Hepatitis C 12/13/1967 DTaP, Tdap and Td Vaccines ( 1 - Tdap) 1968 Mammogram Screening 1989 Pneumococcal Vaccine: 50+ Ye ars (1 of 1 - PCV) 12/13/1999 Zoster Vaccines (1 of 2) 12/13/1999 Annual Medicare Wellness Visit 2014 Dexa Scan (General) 2014 COVID-19 Vaccine (1 - 2023-2 5 season) 2023 RSV Immunization or 60+ Years (1 - 1-dose 75+ series) 2024 Meningococcal B Vaccine Aged Out No l onger eligible based on patient's age to complete this topic Meningococcal Vaccine Aged Out No lakesha raissa eligible based on patient's age to complete this topic RSV Immunizations Under 20 Months Aged Out No longer eligible based on patient's age to complete this topic Insurance [employer] Advance Directives * Full Code (Latest Code Status on File) Date Activated Date Inactivated Comments 01/18/2018 12:14 PM 01/18/2018 3:31 PM Care Teams Car Refinisher Relationship Specialty Start Date End Date Brianna Hall MD [facility] [address] [place] [address] PCP - General FAMILY PRACTICE 11/17/23
--- OUTSIDE RECORDS SUMMARY | 2024-06-09 12:55 | XMS_ITS | Encounter Summary ---
Author Organization [facility] Address [address] [place] [address] Care Team Providers Care Director Of First Impressions Name Role Phone Unavailable Primary Care Provider Unavailabl e Encounter Details Date Type Department Care Team (Late st Contact Info) Description 01/08/1998 Outpatient Historical [facility] Internal Medicine [address] [address] Ade Goldstein Social History Tobacco Use Types Packs/Day Years Used Date Smoking Tobacco: Never Assessed Sex and Gender Information Value Date Recorded Sex Assigned at Not on file Legal Sex Male 3:03 AM OBSTETRICAL NURSE Gender Identity Not on file Sexual Orientation Not on file documented as of this encounter Plan of Treatment Not on file documented as of this encounter Visit Diagnoses Not on filedocumented in this encounter
[2024-06-11 16:18] LABS: Immunoglobulin A 115 mg/dL (70-320); TTG IGA AB <1.0 U/mL
== END 2024-06-08 11:42 | disposition home or self-care (01) ==
LOC: ANHGOSHLAB 11:42
PROVIDERS: PCP Family Medicine; Visit Provider Family Medicine
DX: E78.2 Mixed hyperlipidemia (principal); I83.90 Asymptomatic varicose veins of unspecified lower extremity; M85.80 Other specified disorders of bone density and structure, unspecified site; Z78.0 Asymptomatic menopausal state; R19.5 Other fecal abnormalities; R41.3 Other amnesia; R20.0 Anesthesia of skin
CPT/HCPCS: 36415; 80053; 80061; 82306; 82607; 82784; 83516; 85025